=== PATIENT | female | born 1945 | race Caucasian/White ===

== ENCOUNTER 2016-04-15 08:32 | Inpatient (IN) | payer OTHER ==
[2016-04-09 10:28] VITALS: BMI 24.9
[2016-04-09 11:05] VITALS: BP_SYST 144; TEMP 98.6
[2016-04-14 11:29] VITALS: Ht 160 cm; Wt 63.9 kg
[2016-04-14 11:30] VITALS: BP_SYST 144; RESP 18; TEMP 98.6
[2016-04-15] VITALS (36 sets, daily range): BP systolic 113–179; RESP 16–20; TEMP 97.6–99.1
[~2016-04-15] VITALS: Ht 160 cm; Wt 63.9 kg
[~2016-04-15 08:32] MED LIST: CEFAZOLIN 2,000 MG in SODIUM CHLORIDE 0.9% 100 ML IV ONE
[2016-04-15] MEDS ORDERED: GLYCOPYRROLATE 0.2 MG/ML VIAL IV ONE ×2 (08:40→10:15)
[2016-04-15] MEDS ORDERED: MIDAZOLAM 2 MG/2 ML INJ IV ONE ×2 (08:40→11:05)
[2016-04-15] MEDS ORDERED: LIDOCAINE 1% BUFFERED 1 ML SYR INTRADERM PRN (08:40)
[2016-04-15] MEDS ORDERED: LACT RINGERS 1,000 ML IV SCH ×2 (08:40→14:40)
[2016-04-15] MEDS ORDERED: TRANEXAMIC ACID IV ONE ×4 (08:45)
[2016-04-15] MEDS ORDERED: SODIUM CHLORIDE 0.9% IV ONE ×4 (08:45)
[2016-04-15] MEDS ORDERED: BACITRACIN 50,000 UNITS INJ IRRIG ONE (10:01)
[2016-04-15] MEDS ORDERED: PROPOFOL 20 ML PER ML IV ONE (10:15)
[2016-04-15] MEDS ORDERED: ACETAMINOPHEN 1,000 MG/100 ML IV ONE ×2 (10:15)
[2016-04-15] MEDS ORDERED: FENTANYL 100 MCG/2 ML AMP IV ONE (10:15)
[2016-04-15] MEDS ORDERED: ONDANSETRON 4 MG VIAL IV PUSH ONE (10:15)
[2016-04-15] MEDS ORDERED: LIDOCAINE 2% SYR 5 ML IV ONE (10:15)
[2016-04-15] MEDS ORDERED: ROCURONIUM 50 MG VIAL IV ONE (10:15)
[2016-04-15] MEDS ORDERED: NEOSTIGMINE 10 MG/10 ML VIAL IV ONE (10:15)
[2016-04-15] MEDS ORDERED: MIDAZOLAM 2 MG/2 ML INJ ONE (10:46)
[2016-04-15] MEDS ORDERED: MORPHINE 2 MG/ML SYR IV PRN (12:30)
[2016-04-15] MEDS ORDERED: ONDANSETRON 4 MG VIAL IV PRN (12:30)
[2016-04-15] MEDS ORDERED: OXYCODONE 5 MG TAB PO PRN (12:30)
[2016-04-15] MEDS ORDERED: MORPHINE 4 MG/ML SYR IV PRN ×2 (12:30→14:40)
[2016-04-15] MEDS ORDERED: DILAUDID 1 MG/ML AMP IV PRN (12:30)
[2016-04-15] MEDS ORDERED: MEPERIDINE 25 MG/ML IV PRN (12:30)
[2016-04-15] MEDS ORDERED: BUPIVACA/EPI 0.5% 50ML EPIDURAL ONE (13:32)
[2016-04-15] MEDS ORDERED: ROPIVACAINE 5 MG/ML 30 ML EPIDURAL ONE (13:32)
[2016-04-15] MEDS ORDERED: CHLORDIAZEPOXIDE 25 MG CAP PO PRN (16:00)
[2016-04-15] MEDS: MORPHINE 2 MG/ML SYR IV PRN ×3 (16:43→23:01)
[2016-04-15] MEDS: CEFAZOLIN 2,000 MG in SODIUM CHLORIDE 0.9% 100 ML IV SCH ×2 (17:32→23:00)
[2016-04-15] MEDS: THIAMINE 100 MG TAB PO SCH (17:32)
[2016-04-15] MEDS: MULTIVITS/MINERALS (THERAGRAN M) TAB PO SCH (17:32)
[2016-04-15] MEDS: FOLIC ACID 1 MG TAB PO SCH (17:32)
[2016-04-15] MEDS: TRAMADOL 50 MG TAB PO PRN (18:15)
[2016-04-15] MEDS: NEB-BROVANA 15 MCG/2 ML INH SCH ×3 (18:55→22:25)
[2016-04-15] MEDS ORDERED: ONDANSETRON 4 MG VIAL IV PUSH PRN (19:10)
[2016-04-15] MEDS: PANTOPRAZOLE 40 MG TAB PO SCH (21:05)
[2016-04-15] MEDS: NICOTINE 7 MG/24 HR TRANSDERM SCH (21:10)
[2016-04-15] MEDS: NEB-BUDESONIDE 0.5 MG INH SCH (22:25)
[2016-04-16] VITALS (7 sets, daily range): BP systolic 106–141; RESP 16–18; TEMP 97.8–99.1
[2016-04-16] MEDS: TRAMADOL 50 MG TAB PO PRN (01:17)
[2016-04-16] MEDS: MORPHINE 2 MG/ML SYR IV PRN ×5 (02:40→08:38)
[2016-04-16] MEDS: CEFAZOLIN 2,000 MG in SODIUM CHLORIDE 0.9% 100 ML IV SCH (05:59)
[2016-04-16] MEDS: PANTOPRAZOLE 40 MG TAB PO SCH (06:00)
[2016-04-16] MEDS: NEB-BUDESONIDE 0.5 MG INH SCH (07:01)
[2016-04-16] MEDS: NEB-BROVANA 15 MCG/2 ML INH SCH (07:01)
[2016-04-16] MEDS: MULTIVITS/MINERALS (THERAGRAN M) TAB PO SCH (08:38)
[2016-04-16] MEDS: FOLIC ACID 1 MG TAB PO SCH (08:38)
[2016-04-16] MEDS: THIAMINE 100 MG TAB PO SCH (08:38)
[2016-04-16] MEDS: NICOTINE 7 MG/24 HR TRANSDERM SCH (08:39)
[2016-04-16] MEDS ORDERED: Losartan 50 MG TAB PO SCH (09:00)
[2016-04-16] MEDS ORDERED: VENLAFAXINE HCL 75 MG TAB PO SCH (09:00)
[2016-04-16] MEDS ORDERED: SERTRALINE 100 MG TAB PO SCH (09:00)
== END 2016-04-16 11:40 | disposition home health service (06) | DRG 483 ==
LOC: ENRESERVTM → ENRESERVDT → ENPENDDIS 08:32 → SDS 08:32 → 2NO 15:06
PROVIDERS: ADMIT Internal Medicine; ATTEND Internal Medicine
PROC: 0RRJ00Z Replacement of Right Shoulder Joint with Reverse Ball and Socket Synthetic Substitute, Open Approach (ICD-10-PCS; principal; 2016-04-15 10:38)
DX: M19.011 Primary osteoarthritis, right shoulder (principal); D62 Acute posthemorrhagic anemia; J44.9 Chronic obstructive pulmonary disease, unspecified; Z87.891 Personal history of nicotine dependence; I10 Essential (primary) hypertension; K21.9 Gastro-esophageal reflux disease without esophagitis; F32.9 Major depressive disorder, single episode, unspecified; E78.00 Pure hypercholesterolemia, unspecified; Z79.82 Long term (current) use of aspirin; E53.8 Deficiency of other specified B group vitamins; Z72.89 Other problems related to lifestyle
CPT/HCPCS: 36415; 80048; 80053; 80320; 82248; 83735; 84100; 85025; 85610; 85730; 86850; 86900; 86901; 93005; 94640; 94799

== ENCOUNTER 2016-04-16 18:42 | Inpatient (IN) | payer OTHER ==
[~2016-04-16] VITALS: Ht 160 cm; Wt 67.9 kg
[2016-04-16] MEDS ORDERED: OPTIRAY 350 100 ML VIAL HMH IV ONE (18:43)
[2016-04-17] VITALS (9 sets, daily range): BP systolic 105–132; RESP 16–20; TEMP 97.7–99.2; Ht 160 cm; Wt 67.9 kg
[2016-04-17] MEDS ORDERED: PNEUMO VAC 25 MCG/0.5 ML VL IM.VACC ONE (01:45)
[2016-04-17] MEDS: ACETAMINOPHEN 325 MG TAB PO PRN ×2 (06:07→08:56)
[2016-04-17] MEDS ORDERED: DUONEB INH SCH ×2 (07:00→12:00)
[2016-04-17] MEDS: NEB-BROVANA 15 MCG/2 ML INH SCH ×2 (07:18→20:14)
[2016-04-17] MEDS: ENOXAPARIN 30 MG/0.3 ML SYR SUBQ SCH (08:54)
[2016-04-17] MEDS: PREDNISONE 20 MG TAB PO SCH ×2 (08:55→16:11)
[2016-04-17] MEDS: OXYCODONE/APAP 7.5/325 TAB PO PRN ×4 (10:42→21:38)
[2016-04-17] MEDS: TRIAMTER/HCTZ 37.5/25MG TAB PO SCH (10:42)
[2016-04-17] MEDS: SERTRALINE 100 MG TAB PO SCH (10:42)
[2016-04-17] MEDS: PANTOPRAZOLE 40 MG TAB PO SCH (10:42)
[2016-04-17] MEDS: VENLAFAXINE HCL 75 MG TAB PO SCH (10:43)
[2016-04-17] MEDS ORDERED: MISSING DOSE XX ONE (12:25)
[2016-04-17] MEDS ORDERED: IRON SUCROSE COMPLEX 400 MG in SODIUM CHLORIDE 0.9% 250 ML IV SCH (12:45)
[2016-04-17] MEDS: NICOTINE 7 MG/24 HR TRANSDERM SCH (14:34)
[2016-04-17] MEDS: IRON SUCROSE COMPLEX 400 MG in SODIUM CHLORIDE 0.9% 250 ML IV SCH (14:49)
[2016-04-17] MEDS: DUONEB INH SCH ×2 (20:15→23:22)
[2016-04-18] VITALS (7 sets, daily range): BP systolic 118–148; RESP 16–20; TEMP 97.8–98.4
[2016-04-18] MEDS: PREDNISONE 20 MG TAB PO SCH ×3 (00:45→20:24)
[2016-04-18] MEDS: ACETAMINOPHEN 325 MG TAB PO PRN ×2 (03:31→11:39)
[2016-04-18] MEDS: OXYCODONE/APAP 7.5/325 TAB PO PRN ×5 (04:15→20:30)
[2016-04-18] MEDS ORDERED: SODIUM CHLORIDE 0.9% FLUSH BAG 500 ML IV PRN (04:25)
[2016-04-18] MEDS: PANTOPRAZOLE 40 MG TAB PO SCH (06:05)
[2016-04-18] MEDS: NEB-BROVANA 15 MCG/2 ML INH SCH ×2 (06:56→18:54)
[2016-04-18] MEDS: DUONEB INH SCH ×5 (06:56→23:19)
[2016-04-18] MEDS: NICOTINE 7 MG/24 HR TRANSDERM SCH (08:05)
[2016-04-18] MEDS: VENLAFAXINE HCL 75 MG TAB PO SCH (08:06)
[2016-04-18] MEDS: TRIAMTER/HCTZ 37.5/25MG TAB PO SCH (08:07)
[2016-04-18] MEDS: ENOXAPARIN 30 MG/0.3 ML SYR SUBQ SCH (08:07)
[2016-04-18] MEDS: IRON SUCROSE COMPLEX 400 MG in SODIUM CHLORIDE 0.9% 250 ML IV SCH (08:07)
[2016-04-18] MEDS: SERTRALINE 100 MG TAB PO SCH (08:07)
[2016-04-18] MEDS ORDERED: POLYETHYLENE GLYCOL 17 GM PACKET PO PRN (14:40)
[2016-04-18] MEDS: DOCUSATE SOD 100 MG CAP PO SCH ×2 (16:09→20:24)
[2016-04-19] VITALS (7 sets, daily range): BP systolic 125–153; RESP 16–20; TEMP 97.8–98.4
[2016-04-19] MEDS: OXYCODONE/APAP 7.5/325 TAB PO PRN ×5 (03:16→20:43)
[2016-04-19] MEDS: PANTOPRAZOLE 40 MG TAB PO SCH (05:52)
[2016-04-19] MEDS: NEB-BROVANA 15 MCG/2 ML INH SCH ×2 (07:43→19:09)
[2016-04-19] MEDS: DUONEB INH SCH ×5 (07:43→23:09)
[2016-04-19] MEDS: SERTRALINE 100 MG TAB PO SCH (08:31)
[2016-04-19] MEDS: VENLAFAXINE HCL 75 MG TAB PO SCH (08:32)
[2016-04-19] MEDS: IRON SUCROSE COMPLEX 400 MG in SODIUM CHLORIDE 0.9% 250 ML IV SCH (08:32)
[2016-04-19] MEDS: PREDNISONE 20 MG TAB PO SCH ×2 (08:32→20:42)
[2016-04-19] MEDS: TRIAMTER/HCTZ 37.5/25MG TAB PO SCH (08:32)
[2016-04-19] MEDS: DOCUSATE SOD 100 MG CAP PO SCH ×2 (08:32→20:42)
[2016-04-19] MEDS: NICOTINE 7 MG/24 HR TRANSDERM SCH (08:33)
[2016-04-19] MEDS: ENOXAPARIN 30 MG/0.3 ML SYR SUBQ SCH (08:33)
[2016-04-20] VITALS (8 sets, daily range): BP systolic 137–162; RESP 16–20; TEMP 97.4–98.3
[2016-04-20] MEDS: ACETAMINOPHEN 325 MG TAB PO PRN ×3 (03:48→13:45)
[2016-04-20] MEDS: PANTOPRAZOLE 40 MG TAB PO SCH (05:59)
[2016-04-20] MEDS: DUONEB INH SCH ×5 (07:25→23:05)
[2016-04-20] MEDS: NEB-BROVANA 15 MCG/2 ML INH SCH ×2 (07:25→19:35)
[2016-04-20] MEDS: TRIAMTER/HCTZ 37.5/25MG TAB PO SCH (08:42)
[2016-04-20] MEDS: DOCUSATE SOD 100 MG CAP PO SCH ×2 (08:42→20:27)
[2016-04-20] MEDS: SERTRALINE 100 MG TAB PO SCH (08:42)
[2016-04-20] MEDS: VENLAFAXINE HCL 75 MG TAB PO SCH (08:42)
[2016-04-20] MEDS: PREDNISONE 20 MG TAB PO SCH ×2 (08:42→20:27)
[2016-04-20] MEDS: ENOXAPARIN 30 MG/0.3 ML SYR SUBQ SCH (08:43)
[2016-04-20] MEDS: KCL CR 8 MEQ TAB PO SCH (08:43)
[2016-04-20] MEDS: NICOTINE 7 MG/24 HR TRANSDERM SCH (08:46)
[2016-04-20] MEDS ORDERED: Furosemide 20 MG/2 ML VIAL IV SCH (09:00)
[2016-04-21 03:21] VITALS: BP_SYST 156; RESP 20; TEMP 97.9
[2016-04-21 03:22] VITALS: TEMP 97.9
[2016-04-21] MEDS: PANTOPRAZOLE 40 MG TAB PO SCH (06:18)
[2016-04-21 07:23] VITALS: BP_SYST 158; RESP 20; TEMP 98.5
[2016-04-21] MEDS: NEB-BROVANA 15 MCG/2 ML INH SCH ×2 (07:25→19:22)
[2016-04-21] MEDS: DUONEB INH SCH ×4 (07:25→19:23)
[2016-04-21] MEDS: DOCUSATE SOD 100 MG CAP PO SCH ×2 (08:56→20:57)
[2016-04-21] MEDS: VENLAFAXINE HCL 75 MG TAB PO SCH (08:56)
[2016-04-21] MEDS: PREDNISONE 20 MG TAB PO SCH (08:57)
[2016-04-21] MEDS: TRIAMTER/HCTZ 37.5/25MG TAB PO SCH (08:57)
[2016-04-21] MEDS: KCL CR 8 MEQ TAB PO SCH (08:57)
[2016-04-21] MEDS: SERTRALINE 100 MG TAB PO SCH (08:58)
[2016-04-21] MEDS: ENOXAPARIN 30 MG/0.3 ML SYR SUBQ SCH (08:58)
[2016-04-21] MEDS: NICOTINE 7 MG/24 HR TRANSDERM SCH (08:59)
[2016-04-21] MEDS ORDERED: Furosemide 40 MG/4 ML VIAL IV SCH (09:00)
[2016-04-21 11:07] VITALS: BP_SYST 147; TEMP 97.6
[2016-04-21 11:09] VITALS: RESP 20
[2016-04-21 19:52] VITALS: BP_SYST 144; RESP 20; TEMP 98.4
[2016-04-22 00:07] VITALS: BP_SYST 146; RESP 20; TEMP 98.4
[2016-04-22] MEDS: DUONEB INH SCH ×2 (00:13→07:49)
[2016-04-22 02:39] VITALS: BP_SYST 151
[2016-04-22 02:41] VITALS: RESP 16; TEMP 98.1
[2016-04-22] MEDS: ACETAMINOPHEN 325 MG TAB PO PRN (03:52)
[2016-04-22] MEDS: PANTOPRAZOLE 40 MG TAB PO SCH (06:33)
[2016-04-22 07:43] VITALS: BP_SYST 177; RESP 20; TEMP 97.8
[2016-04-22] MEDS: NEB-BROVANA 15 MCG/2 ML INH SCH (07:46)
[2016-04-22] MEDS: NICOTINE 7 MG/24 HR TRANSDERM SCH (08:44)
[2016-04-22] MEDS: SERTRALINE 100 MG TAB PO SCH (08:45)
[2016-04-22] MEDS: VENLAFAXINE HCL 75 MG TAB PO SCH (08:45)
[2016-04-22] MEDS: ENOXAPARIN 30 MG/0.3 ML SYR SUBQ SCH (08:45)
[2016-04-22] MEDS: DOCUSATE SOD 100 MG CAP PO SCH (08:45)
[2016-04-22] MEDS: TRIAMTER/HCTZ 37.5/25MG TAB PO SCH (08:45)
[2016-04-22] MEDS ORDERED: PREDNISONE 20 MG TAB PO SCH (09:00)
[2016-04-22 10:31] VITALS: BP_SYST 177; RESP 20; TEMP 97.8
== END 2016-04-22 11:00 | disposition home or self-care (01) | DRG 189 ==
LOC: ENRESERVTM → ENRESERVDT → ER 18:42 → EMR 23:56 → ENPENDDIS 23:56 → 3NT 04-17 00:58
PROVIDERS: ADMIT Internal Medicine; ATTEND Internal Medicine
DX: J96.01 Acute respiratory failure with hypoxia (principal); I50.31 Acute diastolic (congestive) heart failure; D62 Acute posthemorrhagic anemia; J44.1 Chronic obstructive pulmonary disease with (acute) exacerbation; E78.5 Hyperlipidemia, unspecified; E53.8 Deficiency of other specified B group vitamins; Z87.891 Personal history of nicotine dependence; I11.0 Hypertensive heart disease with heart failure; K21.9 Gastro-esophageal reflux disease without esophagitis; Z87.11 Personal history of peptic ulcer disease; F41.9 Anxiety disorder, unspecified; F32.9 Major depressive disorder, single episode, unspecified; Z72.89 Other problems related to lifestyle; Z23 Encounter for immunization
CPT/HCPCS: 36415; 36600; 71010; 71260; 80048; 80053; 82553; 82728; 82803; 83540; 83880; 84466; 84484; 85014; 85018; 85025; 85610; 85730; 90732; 93005; 94640; 94799